=== PATIENT | female | born 1975 | race Caucasian/White ===

== ENCOUNTER → 2018-05-20 13:56 | Outpatient (CLI) | payer OTHER, SELFPAY ==
--- NOTE | 2018-05-20 14:01 | BI_ITS ---
MAMMOGRAPHY - BILATERAL DIAGNOSTIC REASON FOR EXAM: Female, 43 years old. RT PALPABLE MASS EXCISED 03/2016 - F/U EXAM FROM RT MASS OF 2016 PERTINENT HISTORY: NO FAM HX - BILAT IMPLANTS 2001 - TECHNIQUE: Digital bilateral breast irina (3D mammographic acquisition) in the CC and MLO projections. 2-D mediolateral oblique (MLO) and craniocaudad (CC) views of both breasts were obtained. CAD: Full Field Digital Mammography with Computer Added Detection was performed. COMPARISON: None. FINDINGS: Breast Composition: The breasts are heterogeneously dense, which may obscure small masses. There are no dominant masses or suspicious calcifications. No other significant abnormalities are identified. BI/DIAG MAMM W/CAD, BILAT IMPRESSION: Stable bilateral diagnostic mammogram. One year follow-up recommended. (A) ASSESSMENT CATEGORY: BIRADS Category 2: Benign. A letter regarding these results will be sent to the patient by the facility within 30 days. Approximately 10% of breast cancers are not detected by mammography. A normal mammogram should not delay biopsy of a clinically suspicious abnormality. Electronically Signed: Abner Estrella, at 17:00 EDT Tel , Service support ,
--- NOTE | 2018-05-20 14:44 | US_ITS ---
STUDY: ULTRASOUND BREAST - RIGHT REASON FOR EXAM: Female, 43 years old. RT BREAST MASS - CYST . REMOVED BY SLABY TECHNIQUE: Axial and longitudinal images of the RIGHT breast were performed with a high resolution ultrasound transducer. COMPARISON: 12/28/2015 and 02/22/2016 FINDINGS: RIGHT Breast: Homogeneous fibroglandular tissue and subcutaneous fat are noted in the right breast in the area previously described cyst at 4:00 position in the periareolar region. There is no evidence of recurrent cyst or soft tissue mass. US/Breast Limited Unilateral IMPRESSION: Benign findings. ASSESSMENT CATEGORY: BIRADS Category 2: Benign. A letter regarding these results will be sent to the patient by the facility within 30 days. Electronically Signed: Abner Estrella, at 16:33 EDT Tel , Service support ,
== END ==
PROVIDERS: Family Provider Family Medicine; PCP Family Medicine; Referring Provider Family Medicine; Visit Provider Family Medicine
DX: Z98.890 Other specified postprocedural states (principal)
CPT/HCPCS: 76642; 77062; 77066; G0279

== ENCOUNTER 2023-12-04 11:39 | Day surgery (SDC) | payer OTHER, SELFPAY ==
[2023-12-04] VITALS (8 sets, daily range): BP systolic 113–144; BP diastolic 73–91; PULSE 76–104; RESP 16; TEMP 36.1–36.6; O2SAT 100; BMI 22.8
[2023-12-04] MEDS: Lactated Ringers 1,000 ML 15 ML IV (11:59)
[2023-12-04 12:00] LABS: Internal QC Validated? YES +Cl - CLEAR BKGD; Pregnancy, Urine Negative Negative
--- NOTE | 2023-12-04 12:15 | PRE.ANES_ITS ---
ASA Classification* ASA Classification ASA Classification: 2 Assessment & Plan Anesthesia* Anesthesia Assessment Anesthesia Assessment: Discussed sedation and/or anesthesia options, risks, benefits, and alternatives with patient/parents/legal guardian/POA. Questions invited. The patient/parents/legal guardian/POA seems to understand and agrees to proceed with anesthesia plan. Reviewed the physical assessment, medical history, allergy history and patient home medications list prior to surgery/procedure/anesthetic and documented any changes. Performed airway and anesthesia risk assessments. Anesthesia Type Anesthesia Type: General (see written pre anesthesia record for full assessment) Anesthesia Focused Assessment* Temperature: 97 F Pulse Rate: 92 Blood Pressure: 144/91 Respiratory Rate: 16 Pulse Ox: 100 Airway Assessment Mouth opens: >3 cm Mallampati Score: II Focused Labs Anesthesia Preop lab: CBC WBC 7.8 K/mm3 (4.4-11.0) 03/01/13 07:50 RBC 4.68 M/mm3 (4.2-5.4) 03/01/13 07:50 Hgb 13.7 g/dl (12.0-15.0) 03/01/13 07:50 Hct 40.8 % (37-47) 03/01/13 07:50 Plt Count 269 K/mm3 (150-450) 03/01/13 07:50 CHEMISTRY COAG Urine Test Negative Negative 12/04/23 11:50 Pre-Assessment Diagnosis/Proposed Procedure Planned Operative Procedure(s): exc of ca up arm Anesthesia History 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 When Was Last Pacemaker Check QUESTION #4 FULL TEXT: You/Your Family Experience fever (hyperthermia) with Anesthesia Last Oral Intake Last Oral intake: Last Oral Intake NPO since Meds taken in AM with sips of water? Meds patient instructed to take am of surgery PONV PONV - hot iron worker: PONV - hot iron worker Female Yes 11/27/23 15:26 HX of Motion Sickness Yes 11/27/23 15:26 HX of N/V After Surgery No 11/27/23 15:26 Non-Smoker Yes 11/27/23 15:26 Duration of Surgery greater Yes 11/27/23 15:26 than 60 minutes Number of Risk Factors 4 11/27/23 15:26 PONV Score Severe Risk 11/27/23 15:26 Height & Weight Height & Weight: Anesthesia: Height & Weight Height 5 ft 9 in 12/04/23 11:55 Weight: 70 kg 12/04/23 11:55 Body Mass Index (BMI) 22.8 12/04/23 11:55 Respiratory Assessment Respiratory Assessment - hot iron worker: Respiratory Tract Infection Hx - hot iron worker Hx Respiratory Tract Infection No 11/27/23 15:26 STOP Sleep Apnea STOP Sleep Apnea - hot iron worker: STOP Sleep Apnea - hot iron worker Hx Hypertension No 11/27/23 15:26 Hx Sleep Apnea No 11/27/23 15:26 CPAP No 11/17/23 15:47 BIPAP No 11/17/23 15:47 Do you snore loudly (louder No 11/27/23 15:26 than talking or can be heard Do you often feel tired/ No 11/27/23 15:26 fatigued/ sleepy during daytime? Has anyone observed you stop No 11/27/23 15:26 breathing during sleep? STOP Results Negative 11/27/23 15:26 QUESTION #5 FULL TEXT : Do you snore loudly (louder than talking or can be heard through closed doors)? 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 Specify any problems Hx of Preganancy in last 3 No 11/27/23 15:26 Months Nurse Filling Out Transfusion [email or web address] 11/27/23 15:26 & Questions: Date: 11/27/23 11/27/23 15:26 Time: 15:29 11/27/23 15:26 Patient unable to answer at this time (ie. confused, unrespo /Reproduction History /Reproductive History - hot iron worker: /Reproductive Hx- hot iron worker Hx Now Gestational Age (in weeks): EDC: Hx Hx Para Hx Section SAB Active Medications Active Medications: Current Medications Generic Name Dose Route Start Last Admin Trade Name Freq PRN Reason Stop Dose Admin Cefazolin Sodium 2 gm/ Sodium 110 mls @ 150 mls/hr 12/04/23 12:55 Chloride IV 12/04/23 13:38 PREOP ONE Lactated Ringer's 1,000 mls @ 15 mls/hr 12/04/23 11:45 12/04/23 11:59 IV 15 mls/hr .Q48H AZALEA Administration PFSH Medical History Wears partial dentures Non-smoker History of frequent headaches Home Medications ?Medication ?Instructions ?Recorded ?Last Taken ?Type NK 12/04/23 Unknown History Allergy/AdvReac Type Severity Reaction Status Date / Time adhesive Allergy Rash Verified 12/04/23 11:54 cephalexin monohydrate (From AdvReac Nausea Verified 12/04/23 11:54 Keflex) Family History Father Colon cancer Kidney disease Mother Diabetes Sister Diabetes Grandmother Heart disease CVA (cerebral vascular accident) Grandfather Heart disease Surgical History H/O rotator cuff surgery History of breast lump removal Social History Smoking Status: Never smoker alcohol intake: never substance use type: does not use additional social history: Denies vaping, denies edibles, denies marijuana use, denies aspirin and denies ibuprofen use Review of Systems (Anesthesia) ROS Narrative System reviewed and no additional complaints, except as documented.
--- NOTE | 2023-12-04 12:55 | TISS_PTH ---
PATIENT: JANNIE MCMULLEN LOC: [facility] [place] U#:[id number] AGE/SX: 48/F ROOM: RE12/04/[address]: Dr. Maggi Brown MD : 1975 BED: DIS: 12/04/2023 SPEC #: [id number] RECD: 12/04/23 18:15 STATUS: ROSCOE LOPEZ #: [id number] RAÚL: 12/04/23 12:[address]: Maggi Brown DEPT: SURGICAL PATHOLOGY RECD BY: Popeye Mcnamara ENTERED: 12/05/23 07:38 SP TYPE: Tissue Bx [facility] DR: Dr. 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 Dermal fibrosis consistent with scar. Negative for malignancy. 12/08/2023 MICROSCOPIC DESCRIPTION Slides are reviewed. GROSS DESCRIPTION Received in fixative is one container labeled with the patient's name and designated Neoplasm left upper arm. The specimen consists of a osorio-white skin ellipse measuring 1.6 x 1.1cm and up to 0.3cm in thickness. This specimen is oriented as follows: 1 suture posterior aspect, 2 suture superior aspect. The specimen is inked as follows: superior margin-yellow, inferior margin- green, anterior margin- black, posterior margin- blue. Sections are serially sectioned and submitted entirely in one cassette. 12/05/2023 TC:5 CPT:73185
--- NOTE | 2023-12-04 14:01 | PCM.HP.BLA ---
History and Physical Date of Admission: 12/04/23 The patient is examined and there are no changes from the H&P dated 11/28/2023. She presents for excision of a neoplasm of her upper arm. Informed consent was obtained. Assessment & Plan Assessment/Plan (1) Neoplasm of uncertain behavior of skin of upper arm: PLAN: Plan For excision neoplasm of left upper arm with submission for pathologic evaluation
[2023-12-04] MEDS: Lidocaine 1% /Epi 1:100 (20ml) 20 ML Vial INFILT (14:15)
[2023-12-04] MEDS: Cefazolin 2 GM in 0.9% Normal Saline (100mL Bag) 100 ML IV (14:16)
--- NOTE | 2023-12-04 15:22 | DCINST_ITS ---
Discharge Instructions Dressing / Incision Additional Dressing/Incision Instructions:: May shower over the dressing, but do not scrub. Leave the dressings in place until seen in the office. Take the oral antibiotic (Bactrim DS) 2 times a day until finished. Follow Up Care Please Follow Up With: Maggi Brown MD When: In 1 to 2 weeks Test Results: Test results from this visit will be discussed in further detail at your follow- up appointment, if applicable. Discharge Plan Admission Attending Provider: Maggi Brown Primary Care Provider: Peterson Davison Instructions Print Language: Upper Sorbian Discharge Orders/Prescriptions Prescriptions: New sulfamethoxazole-trimethoprim [Bactrim] 400-80 mg tablet 1 tab PO BID 5 Days Qty: 10 0RF Referrals / Follow Up: Peterson Davison MD [Primary Care Provider] - Disposition Disposition (needs filled in before D/C Order can be placed): Home, Self Care
--- NOTE | 2023-12-04 15:25 | PCM.OPRPT ---
Problems Associated Problem List Diagnoses (1) Personal history of skin cancer: (2) Neoplasm of uncertain behavior of skin of upper arm: Report of Operation Date of Procedure: 12/04/23 Pre-Operative Diagnosis: Neoplasm of uncertain behavior left upper arm Personal history of dermatofibrosarcoma Post-Operative Diagnosis: Same Surgery/Procedure Performed:: Excision lesion left upper arm (4.0 cm) with intermediate closure Surgeon: Maggi Brown Type of Anesthesia: General Specimen's removed: Neoplasm of upper arm Estimated Blood Loss (mL): Minimal Description of Procedure: The patient presents today with a change in the site of a previous dermatofibrosarcoma. She presents for excision of the site with submission for pathologic evaluation. The patient is brought to the operating room and placed under general anesthesia in the supine position. The left upper arm is prepped and draped in the usual sterile fashion. We initially began with injecting the area with lidocaine with epinephrine to facilitate hemostasis. An elliptical incision is made around the new site and the specimen is passed off the operative field after marking orientation for pathology. Hemostasis is controlled with cautery. The wound is then closed in layers using a Monocryl suture in the subcutaneous tissue and dermis. Skin edges are approximated with a running subcuticular Monocryl suture. Further reinforcement the closure is done with interrupted Prolene suture and refinement of the closure was also performed with a fast-absorbing gut. Steri-Strips and a Tegaderm are placed on the site. She tolerated the procedure well was taken to the recovery area in an awake and stable condition. Needle and sponge counts are correct. Complications None Admit VTE Documentation VTE Mechan Device Prophylaxis: SCD's
--- NOTE | 2023-12-04 15:28 | PCM.POST.ANE ---
Anesthesia: Postop Eval I Current Vital Signs Temperature: 97.9 F Pulse Rate: 82 Blood Pressure: 128/88 Respiratory Rate: 16 Pulse Ox: 100 Oxygen Delivery Method: Room Air Assessment Airway patent: Yes Spontaneous unlabored respirations: Yes Mental status: Awake and Calm nausea: No Vomiting: No Anesthesia Complication: No Fluid Hydration Crystalloid volume administer (ml): 500 Total IV fluid infused: 500 Progress Note Anesthesia document: Postop Eval 1 completed: Yes
--- NOTE | 2023-12-04 17:02 | POSTOPAN2_ITS ---
Anesthesia Postop Eval I Sum Postop Eval Completion status Anesthesia document: Postop Eval 1 completed: Yes Anesthesia Postop Eval I Summary Anesthesia Postop Eval I Summary: Anesthesia Postop Eval I: Assessment Summary Airway patent Yes 12/04/23 15:29 SHEEP [email or web address] Spontaneous unlabored Yes 12/04/23 15:29 SHEEP [email or web address] respirations Mental status Awake,Calm 12/04/23 15:29 SHEEP [email or web address] nausea No 12/04/23 15:29 SHEEP [email or web address].[email or web address] Vomiting No 12/04/23 15:29 SHEEP [email or web address].[email or web address] Anesthesia Postop Eval I: Fluid Summary Crystalloid volume administer 500 12/04/23 15:29 SHEEP [email or web address] (ml) Colloids volume administered ( ml) Blood Product volume administered (ml) Total IV fluid infused 500 12/04/23 15:29 SHEEP [email or web address].[email or web address] Anesthesia Postop Eval I: Summary Notes Anesthesia Complication No 12/04/23 15:29 SHEEP [email or web address].[email or web address] Anesthesia Complication Comment: Post-operative progress note Anesthesia: Postop Eval II Evaluation Mental status: Awake Pain Level: 1 nausea: No Vomiting: No
--- NOTE | 2023-12-04 17:02 | PCM.POSTANE2 ---
Anesthesia Postop Eval I Sum Postop Eval Completion status Anesthesia document: Postop Eval 1 completed: Yes Anesthesia Postop Eval I Summary Anesthesia Postop Eval I Summary: Anesthesia Postop Eval I: Assessment Summary Airway patent Yes 12/04/23 15:29 EVENING [email or web address] Spontaneous unlabored Yes 12/04/23 15:29 EVENING [email or web address].[email or web address] respirations Mental status Awake,Calm 12/04/23 15:29 EVENING [email or web address] nausea No 12/04/23 15:29 EVENING [email or web address].[email or web address] Vomiting No 12/04/23 15:29 EVENING ANCHOR.[email or web address] Anesthesia Postop Eval I: Fluid Summary Crystalloid volume administer 500 12/04/23 15:29 EVENING [email or web address].[email or web address] (ml) Colloids volume administered ( ml) Blood Product volume administered (ml) Total IV fluid infused 500 12/04/23 15:29 EVENING [email or web address].[email or web address] Anesthesia Postop Eval I: Summary Notes Anesthesia Complication No 12/04/23 15:29 EVENING ANCHOR.[email or web address] Anesthesia Complication Comment: Post-operative progress note Anesthesia: Postop Eval II Evaluation Mental status: Awake Pain Level: 1 nausea: No Vomiting: No
== END 2023-12-04 16:17 | disposition home or self-care (01) ==
LOC: SDC 11:40 → AC 11:42
PROVIDERS: Anesthesiology; PCP Family Medicine; Referring Provider Family Medicine; Visit Provider Plastic Surgery
PROC: (CPT 11406; principal; 2023-12-04 12:45)
DX: D48.5 Neoplasm of uncertain behavior of skin (principal); Z85.828 Personal history of other malignant neoplasm of skin
CPT/HCPCS: 11406; 12032; 00400; 81025; 88305; J7120; J2405